=== PATIENT | male | born 1960 | race Hispanic/Latino ===

== ENCOUNTER 2021-08-30 00:11 | Emergency (ER) | payer OTHER ==
[~2021-08-30] VITALS: Ht 167.6 cm; Wt 98.9 kg
[2021-08-30 01:32] LABS: BASOPHILS % (AUTO) 0.6 % (0.0-5.0); EOSINOPHILS % (AUTO) 1.4 % (0.0-8.0); HEMATOCRIT 45.3 % (42-54); LYMPHOCYTES % (AUTO) 41.6 % (21.0-51.0); MEAN CORPUSCULAR HEMOGLOBIN 29.3 pg (27.0-33.0); MEAN CORPUSCULAR VOLUME 86.1 fL (79-99); MONOCYTES % (AUTO) 9.1 % (3.0-13.0); NEUTROPHILS % (AUTO) 47.1 % (40.0-77.0); PLATELET COUNT (AUTO) 320 K/uL (130-400); RED BLOOD CELL COUNT(AUTO) 5.26 MIL/uL (4.50-6.20); RED CELL DISTRIBUTION WIDTH 12.3 % (11.0-15.5); WHITE BLOOD COUNT (AUTO) 12.2 K/uL (4.8-10.8)
[2021-08-30 01:43] LABS: POTASSIUM 3.5 mmol/L (3.5-5.1)
[2021-08-30 01:47] LABS: ALBUMIN 3.7 g/dL (3.5-5.0); BILIRUBIN,TOTAL 0.4 mg/dL (0.2-1.0); TOTAL PROTEIN, SERUM 7.8 g/dL (6.0-8.3)
[2021-08-30] MEDS ORDERED: SULF1TAB42 PO (03:34)
[2021-08-30 03:42] VITALS: BP 142/60
== END 2021-08-30 04:02 | disposition home or self-care (01) ==
LOC: EDH 00:11
DX: L02.416 Cutaneous abscess of left lower limb (principal); I10 Essential (primary) hypertension
CPT/HCPCS: 10060; 36415; 80053; 85025